=== PATIENT | female | born 1940 | race Caucasian/White ===

== ENCOUNTER → 2020-03-02 12:22 | Outpatient (CLI) | payer MEDICARE, OTHER | END | disposition home or self-care (01) | LOC: D.NM 12:22 | PROVIDERS: ATTEND Family Medicine | DX: R10.11 Right upper quadrant pain (principal) ==

== ENCOUNTER 2020-06-25 06:26 | Day surgery (SDC) | payer MEDICARE, OTHER ==
[~2020-06-25] VITALS: Ht 160 cm; Wt 77.1 kg
[~2020-06-25 06:26] MED LIST: NORCO 7.5-3251 EACH GT; PROAIR HFA8.5 G1 INH; PROTONIX40 MG PO
[2020-06-25 06:58] LABS: BASOPHILS 0.3 % (0-2); EOSINOPHILS 2.4 % (0-7); HEMATOCRIT 43.2 % (36.0-48.0); HEMOGLOBIN 14.2 g/dL (12-16); IMMATURE GRANULOCYTES 0.3 % (0-5); LYMPHOCYTES 20.6 % (15-50); MCH 30.7 pg (26.0-34.0); MCHC 32.9 g/dL (31.0-37.0); MCV 93.3 fL (80.0-100.0); MEAN PLATELET VOLUME 10.3 fL (7.4-10.4); MONOCYTES 8.3 % (2-11); NEUTROPHILS 68.1 % (40-80); PLATELET COUNT 258 10x3/uL (130-400); RBC 4.63 10x6/uL (4.00-5.40); WBC 9.4 10x3/uL (4.8-10.8)
[2020-06-25 07:06] LABS: APTT 31.8 SECONDS (22.8-39.4); INR 0.93 (0.85-1.17); PROTIME 12.5 SECONDS (11.6-15.0)
[2020-06-25 07:39] LABS: ANION GAP 13.9 mmol/L (8-16); CALCIUM 8.9 mg/dL (8.5-10.1); CARBON DIOXIDE 22.3 mmol/L (21.0-32.0); CREATININE - SERUM 1.1 mg/dL (0.6-1.3); POTASSIUM - SERUM 4.2 mmol/L (3.5-5.1)
[2020-06-25 07:50] VITALS: BP 139/73; BMI 30.1
[2020-06-25] MEDS ORDERED: HYDROCODON-ACE1 EA10 PO (09:55)
[2020-06-25 14:10] VITALS: Ht 160 cm; Wt 77.1 kg
--- NOTE | 2020-06-25 15:19 | NUR ---
MANUEL WOOD AT BEDSIDE. IV D/C'D WITH CANNULA INTACT, PRESSURE HELD AND DRSG PLACED. DISCHARGE INSTUCTIONS GIVEN AND PT VERBALIZED AN UNDERSTANDING. DISCHARGED HOME WITHOUT C/O AND OPERATIVE SITE WITH CDI DRSG. HAS WHEELCHAIR IN CAR
--- NOTE | 2020-07-01 13:14 | OP ---
PATIENT NAME: PRAVEENA JACKSON MEDICAL RECORD: [id number] :42 LOCATION:[facility] ADMISSION DATE: SURGEON: RIC MEREDITH MD DATE OF OPERATION: 06/25/2020 PREOPERATIVE DIAGNOSIS: Displaced fracture lateral malleolus of the right ankle. POSTOPERATIVE DIAGNOSIS: Displaced fracture lateral malleolus of the right ankle. PROCEDURE: Open reduction internal fixation of displaced right ankle fracture. SURGEON: Ric Meredith MD COFFEE MACHINE TECHNICIAN: YOSVANY Prince INTRAOPERATIVE COMPLICATIONS: None. SUMMARY OF PATHOLOGIC FINDINGS: The patient did indeed have a displaced lateral malleolus fracture consistent with preoperative radiographs. IMPLANTS USED: [place] VariAx 2 titanium plate. OPERATIVE SUMMARY IN DETAIL: After obtaining the appropriate preoperative orthopedic surgery consent as well as anesthetic consultation, evaluation and clearance, the patient was brought to the operating room and placed on the operating table in supine position. After adequate general laryngeal mask airway anesthesia was administered, tourniquet was placed about the proximal aspect of the right lower extremity. Right lower extremity was then prepped and draped in routine sterile fashion. The leg was elevated and exsanguinated. Tourniquet was inflated to 350 mmHg. At this point, the appropriate timeout was taken and agreed upon by all given the patient's unique identifiers. Fluoroscopy was brought in to verify the appropriate incision site. Incision was made from the tip of lateral malleolus past the fracture. Dissection was carried down, periosteum was gently removed along with the interposed fracture hematoma. Having completed this, the ankle was reduced. Provisional K-wire was put into place followed by placing a 5-hole VariAx 2 fibular plate. Combination of compression screws and locking screws were put into place under direct fluoroscopic visualization. Having completed the fixation, AP and lateral views were submitted for final radiologist review. The wound was then copiously irrigated and closed with 2-0 Vicryl followed by 4-0 Prolene by YOSVANY Prince. Sterile dressings were applied. Tourniquet was deflated. Posterior L&U splint was applied also by YOSVANY Prince. Having completed this, the patient was awakened and taken to recovery room in stable condition. All final needle and sponge counts were correct. TRANSINT:[id number] Voice Confirmation ID: [id number] DOCUMENT ID: [id number] OPERATIVE REPORT [id number] PRAVEENA JACKSON VIRI BRUCE, RIC PAT at 1314 CC: [id number] DICTATION DATE: 07/01/20705 TRAIN ENGINEER: 07/01/20 1035 [facility] [place] 06/25/20 [place] [id number] [place] [id number]
== END 2020-06-25 14:00 | disposition home or self-care (01) ==
LOC: D.OPS 06:26
PROVIDERS: Anesthesiology; ATTEND Orthopaedic Surgery
DX: M25.571 Pain in right ankle and joints of right foot (principal); S82.61XA Displaced fracture of lateral malleolus of right fibula, initial encounter for closed fracture; X58.XXXA Exposure to other specified factors, initial encounter

== ENCOUNTER 2020-12-02 08:47 | Day surgery (SDC) | payer MEDICARE, OTHER ==
[~2020-12-02] VITALS: Ht 157.5 cm; Wt 81.8 kg
[~2020-12-02 08:47] MED LIST changes: +HYDROCODON-ACE1 EA10 PO
[2020-12-02 09:14] LABS: BASOPHILS 0.4 % (0-2); EOSINOPHILS 2.1 % (0-7); HEMATOCRIT 43.9 % (36.0-48.0); HEMOGLOBIN 14.2 g/dL (12-16); IMMATURE GRANULOCYTES 0.3 % (0-5); LYMPHOCYTE ABS# 2.29 10x3/uL (1.18-3.74); LYMPHOCYTES 28.7 % (15-50); MCH 30.3 pg (26.0-34.0); MCHC 32.3 g/dL (31.0-37.0); MCV 93.6 fL (80.0-100.0); MEAN PLATELET VOLUME 9.5 fL (7.4-10.4); MONOCYTES 9.4 % (2-11); NEUTROPHIL ABS# 4.72 10x3/uL (1.56-6.13); NEUTROPHILS 59.1 % (40-80); PLATELET COUNT 297 10x3/uL (130-400); RBC 4.69 10x6/uL (4.00-5.40); RDW 12.7 % (11.5-14.5)
[2020-12-02 09:24] LABS: ANION GAP 10.2 mmol/L (8-16); CALCIUM 9.3 mg/dL (8.5-10.1); CARBON DIOXIDE 29.2 mmol/L (21.0-32.0); CREATININE - SERUM 1.1 mg/dL (0.6-1.3); POTASSIUM - SERUM 4.4 mmol/L (3.5-5.1)
[2020-12-02] MEDS ORDERED: FUROSEMIDE40 MG PO (09:40)
[2020-12-02 09:53] VITALS: BP 147/58; Ht 157.5 cm; Wt 81.8 kg
--- NOTE | 2020-12-02 11:39 | NUR ---
[address] AND DONE. DR HOPPER SAW CXR
--- NOTE | 2020-12-02 12:38 | NUR ---
1145 DRINKING FLUIDS. 1220 IV REMOVED AND INSTRUCTIONS GIVEN
--- NOTE | 2020-12-03 11:44 | OP ---
PATIENT NAME: PRAVEENA JACKSON MEDICAL RECORD: [id number] :42 LOCATION:D.OPS ADMISSION DATE: SURGEON: DOREEN HOPPER MD DATE OF OPERATION: 12/02/2020 PRINCIPAL DIAGNOSES: 1. History of peptic ulcer disease. 2. Duodenal adenoma. POSTOPERATIVE DIAGNOSES: 1. History of peptic ulcer disease. 2. Duodenal adenoma. 3. Clearing of the ulcers and only minimal sean-pyloric gastritis. 4. 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 5. Large hiatal hernia. PROCEDURE: 1. Esophagogastroduodenoscopy with antral biopsies. 2. Duodenal polypectomy utilizing the argon plasma farmworker diversified crops. SURGEON: Doreen Hopper MD SUPERVISORY IT SPECIALIST: None. BLOOD LOSS: Minimal. ANESTHESIA: IV sedation. COMPLICATIONS: None. DESCRIPTION OF PROCEDURE: The patient was conveyed to the endoscopy suite electively on 12/02/2020. IV sedation was induced by the anesthesia staff. A bite block was inserted. A gastroscope was inserted into the mouth. It was then advanced easily into the hypopharynx. The esophagus was easily intubated as were the stomach and duodenum. Upon withdrawal, retroflexed and angulus views were obtained. Antral biopsies were obtained. I then readvanced into the proximal third portion of the duodenum. The duodenal polyp was noted. It was a villous carpeting 2 cm polyp. I removed almost all of the polyp utilizing the cold endoscopic biopsy forceps. I then utilized the argon plasma farmworker diversified crops with the esophageal setting in the forced mode to ablate any residual polypoid tissue. The endoscope was then withdrawn under direct vision. I will see the patient in my office in 2-3 weeks. If there is no high-grade dysplasia, I will plan for her next surveillance upper endoscopy to take place in 2 years. TRANSINT:[id number] Voice Confirmation ID: [id number] DOCUMENT ID: [id number] OPERATIVE REPORT [id number] PRAVEENA JACKSON ROBERT MD at 1144 CC: MYRNA MANN MD and RADHA ESTRADA [id number] DICTATION DATE: 12/02/20 1140 NEGOTIATOR SALES: 12/02/20 1211 [facility] 12/02/20 [facility] [address] [place] [address]
--- NOTE | 2020-12-03 11:46 | HP ---
PATIENT: PRAVEENA JACKSON MEDICAL RECORD: [id number] ACCOUNT: [id number] LOCATION:[facility] : 42 ADMISSION DATE: 12/02/20 PCP: RADHA ESTRADA DO HISTORY AND PHYSICAL EXAMINATION CHIEF COMPLAINT: Duodenal adenoma. HISTORY OF PRESENT ILLNESS: The patient has a duodenal adenoma, also history of gastroesophageal reflux and recently underwent an upper endoscopy by Dr. Page where she identified some gastric ulcers. I am planning on EGD today with duodenal polypectomy. PAST MEDICAL AND SURGICAL HISTORY: Sleep apnea, she is not on CPAP; gastroesophageal reflux; history of renal stones; history of colon cancer; history of hysterectomy; hypertension; asthma. SOCIAL HISTORY: Nonsmoker. MEDICINES: Reviewed. ALLERGIES: TO DEMEROL AND CODEINE. REVIEW OF SYSTEMS: Negative for angina or myocardial infarction. Negative for CVA or seizures. PHYSICAL EXAMINATION: GENERAL: The patient does not appear acutely ill. She does not appear chronically ill. VITAL SIGNS: Reviewed. EARS: External ears appear normal. EYES: Extraocular movements are intact. NECK: Trachea is midline. CHEST: Nonlabored. IMPRESSION: 1. Gastroesophageal reflux. 2. Duodenal adenoma. 3. Peptic ulcer disease. PLAN: EGD with polypectomy. TRANSINT:[id number] Voice Confirmation ID: [id number] DOCUMENT ID: [id number] DOREEN HOPPER MD at 1146 CC: MYRNA PAGE MD and RADHA ESTRADA [id number] DICTATION DATE: 12/02/20 1044 SOCIAL SERVICE LIAISON: 12/02/20 1057 [facility] 12/02/20 [place] [phone]
== END 2020-12-02 12:35 | disposition home or self-care (01) ==
LOC: D.OPS 08:47
PROVIDERS: Anesthesiology; ATTEND Nurse Practitioner
DX: Z87.11 Personal history of peptic ulcer disease (principal); K31.7 Polyp of stomach and duodenum; I85.00 Esophageal varices without bleeding; K44.9 Diaphragmatic hernia without obstruction or gangrene; K21.9 Gastro-esophageal reflux disease without esophagitis; Z85.038 Personal history of other malignant neoplasm of large intestine; I10 Essential (primary) hypertension; J45.909 Unspecified asthma, uncomplicated